=== PATIENT | male | born 1985 | race Caucasian/White ===

== ENCOUNTER 2024-05-08 14:16 | Outpatient (CLI) | payer BC, SELFPAY ==
--- NOTE | ~2024-05-08 | XR_ITS ---
HISTORY: M25.562 - Pain in left knee COMPARISON: None TECHNIQUE: 4 views of the left knee were performed FINDINGS: No acute or subacute fracture, erosion, lytic or sclerotic lesion. Medial tibiofemoral joint space narrowing is identified. No suprapatellar joint effusion is identified. The infrapatellar joint space is clear. IMPRESSION: Trace degenerative disease, without acute fracture or dislocation Reviewed, dictated and finalized at location A.
== END 2024-05-08 14:17 | disposition home or self-care (01) ==
LOC: GOSHIMG 14:18
PROVIDERS: PCP Family Medicine; Visit Provider Family Medicine
DX: M25.562 Pain in left knee (principal)
CPT/HCPCS: 73564

== ENCOUNTER 2024-06-12 09:47 | Outpatient (CLI) | payer BC, SELFPAY ==
--- NOTE | ~2024-06-12 | MR_ITS ---
MRI of the left knee Clinical history: Pain Technique: Coronal proton density and proton density-weighted images, sagittal proton-density and T2 fat-sat images, and axial proton-density fat-saturated images were acquired. Findings: Anterior and posterior cruciate ligaments are intact. Medial collateral ligament and the la teral collateral ligament complex are intact. Popliteus tendon intact. There is mildly complex flap tearing of the posterior horn of the medial meniscus extending to the nitish dy segment. No lateral meniscal tear seen. Articular cartilage is well preserved throughout the knee. Bone marrow signals are unremarkable. Extensor mechanism is intact. No joint effusion or Álvarez's cyst. Impression: Mildly complex flap tear of the posterior horn of the medial meniscus extending to the body segment. Reviewed, dictated and finalized at location M. Impression: Mildly complex flap tear of the posterior horn of the medial meniscus extending to the body segment.
--- OUTSIDE RECORDS SUMMARY | 2024-06-12 10:59 | XMS_ITS | Clinical Summary ---
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 7.5 mL 9 Active Active Problems No known active problems Immunizations Immunization Administration Dates Next Due INFLUENZA VACCINE QUADRIVALE NT 6 MOS UP PF IM 12/08/2019 Influenza Seasonal Unspecifi ed Formulation IM 12/13/2018,12/07/2017,12/07/2017 Family History Medical History Relation Name Comments Hypertension Mother Relation Name Status Comments Mother Social History Tobacco Use Types Packs/Day Years Used Date Smoking Tobacco: Never Smokeless Tobacco: Never Alcohol Use Standard Drinks/Week Comments Yes 1 (1 standard drink = 0.6 oz pur e alcohol) weekly: 2 drinks Sex and Gender Information Value Date Recorded Sex Assigned at Not on file Legal Sex Male 5:04 PM CDT Gender Identity Not on file Sexual Orientation Not on file Occupation Industry Job Start Date Job End Date Not on file Not on file Not on file Not on file Last Filed Vital Signs Vital Sign Reading Time Taken Comments Blood Pressure 102/76 12/07/2018 1:26 PM CDT Pulse 76 12/07/2018 1:26 PM CDT Temperature 36.8 C (98.3 F) 12/07/2018 1:26 PM CDT Respiratory Rate - - Oxygen Saturation 97% 12/07/2018 1:26 PM CDT Inhaled Oxygen Concentration - - Weight 71.2 kg (157 lb) 12/07/2018 1:26 PM CDT Height 168 cm (5' 6.14 ) 12/07/2018 1:26 PM CDT Body Mass Index 25.23 12/07/2018 1:26 PM CDT Plan of Treatment Health Maintenance Due Date Last Done Comments DTAP/TDAP/TD VACCINES (1 - Tdap) 2006 HEPATITIS B VACCINES (1 of 3 - 19+ 3-dose series) 2006 INFLUENZA VACCINE (#1) 2023 0, 12/13/2018, 12/07/2017, Additional history exists HPV VACCINES Aged Out No longer eligi ble based on patient's age to complete this topic
== END 2024-06-12 09:48 | disposition home or self-care (01) ==
PROVIDERS: PCP Family Medicine; Visit Provider Family Medicine
DX: S83.232A Complex tear of medial meniscus, current injury, left knee, initial encounter (principal); X58.XXXA Exposure to other specified factors, initial encounter
CPT/HCPCS: 73721

== ENCOUNTER 2024-06-14 11:00 | Outpatient (RCR) | payer BC, SELFPAY ==
--- NOTE | 2024-05-09 14:52 | OPREHPOC ---
Outpatient Therapy Plan of Care This is a Multidisciplinary Plan of Care that may contain components documented by all disciplines (PT, OT, and ST.) PT Problem 1 PT Problem #1 Knowledge Deficit PT Goal 1 Goal / Goal Update 1. Pt to be IND with issued HEP Target Visit 6 PT Problem 2 PT Problem #2 Pain PT Goal 1 Goal / Goal Update 1. Pt to report knee pain no greater than 3/10 in the last week. Target Visit 6 PT Problem 3 PT Problem #3 Impaired Range of Motion PT Goal 1 Goal / Goal Update 1. Pt to improve active knee ROM to 0-130 deg Target Visit 6 PT Problem 4 PT Problem #4 Impaired Functional Mobility PT Goal 1 Goal / Goal Update 1. Pt to ambulate stairs with a reciprocal pattern without an increase in pain Target Visit 6
--- NOTE | 2024-05-09 14:52 | PTOPEVAL1 ---
Assessment and note entered by Ron Garcia, PT, DPT Evaluation Information Assessment Status Evaluation Diagnosis L knee pain ICD-10 Condition Codes (PT) Pain in left knee M25.562 Onset 02/2024 Subjective Information Pt states he was lunging down to pick something up , felt a massive pop, had instant pain and swelling. Now almost 2 months ago, the swelling has decreased but his pain level is still the same . States in the mornings his pain is manageable but as the day progresses to does his pain. He has 3 small children, likes to bike and marathon running as well. Reports 0/10 pain with rest, 8-9/10 with activity. 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 Reported Pain Level Pain Score 0: Self Report Assessment PT Clinical Summary Pt presents to therapy today for his initial evaluation with a diagnosis of L knee pain, he demonstrates s/s consistent with a L medial meniscus injury. He reports point tenderness to the L medial knee joint and has pain with motion in an open packed position. His pain has remained unchanged in the last 3 months since his injury. His prior activity level and ADLs and limited by pain. It is recommended that pt get an ortho consult to discuss potential surgical options. Skilled therapy services are indicated to improve lateral hip strength to manage knee stability, to manage pain, and to progress to a return to PLOF. Plan of Care Interventions Electrical Stimulation,Gait Training,Hot Pack/Cold Pack,Intermittent Compression Pump,Manual Therapy ,Neuro Re-education,Patient/Caregiver Education, Therapeutic Activities,Therapeutic Exercise PT Services Indicated Yes Treatment Frequency and 1x/wk for 6 visits Duration These treatments will address the objective and functional deficits as defined above. The patient will be advanced safely and appropriately in order for the patient to progress towards his/her prior level of function. Additional exercises will be introduced and as well as a comprehensive home exercise program upon discharge, if needed, ?to ensure carryover of functional gains achieved in the clinic. This treatment plan has been reviewed and agreement upon by the patient.
--- NOTE | 2024-06-14 11:46 | OPREHPOC ---
Outpatient Therapy Plan of Care This is a Multidisciplinary Plan of Care that may contain components documented by all disciplines (PT, OT, and ST.) PT Problem 1 PT Problem #1 Knowledge Deficit PT Goal 1 Goal / Goal Update 1. Pt to be IND with issued HEP Target Visit 6 Progress Met PT Problem 2 PT Problem #2 Pain PT Goal 1 Goal / Goal Update 1. Pt to report knee pain no greater than 3/10 in the last week. 06/14/24: 1. not met Target Visit 6 PT Problem 3 PT Problem #3 Impaired Range of Motion PT Goal 1 Goal / Goal Update 1. Pt to improve active knee ROM to 0-130 deg 06/14/24: 1. progressing Target Visit 6 PT Problem 4 PT Problem #4 Impaired Functional Mobility PT Goal 1 Goal / Goal Update 1. Pt to ambulate stairs with a reciprocal pattern without an increase in pain 06/14/24: 1. not met Target Visit 6
--- NOTE | 2024-06-14 11:46 | PTOPDC ---
Assessment and note entered by Ron Garcia, PT, DPT Evaluation Information Assessment Status Discharge Diagnosis L knee pain ICD-10 Condition Codes (PT) Pain in left knee M25.562 Onset 02/2024 Subjective Information Pt states he has not noticed any real changes since starting therapy. Is still getting sharp pain with activity. Had MRI done, showed complex tear of posterior horn of medial meniscus. Reported Pain Level Pain Score 4: Self Report Assessment PT Clinical Summary Pt presents to therapy today for his progress report following 6 visits of skilled therapy to treat his L knee pain. His pain has remained unchanged since starting therapy. He has made little to no progress towards his therapy goals. Will be discharged at this time, plans to follow up with ortho regarding surgical options.
== END 2024-06-14 13:18 | disposition home or self-care (01) ==
LOC: ANHGOSHPT 11:00
PROVIDERS: PCP Family Medicine; Visit Provider Family Medicine
DX: M25.562 Pain in left knee (principal)
CPT/HCPCS: 97016; 97110; 97161; 97530

== ENCOUNTER 2024-07-10 11:16 | Outpatient (CLI) | payer BC, SELFPAY ==
--- NOTE | 2024-07-10 11:37 | ECG_ITS ---
Test Date: 2024-07-10 11:42:30 Measurements Intervals Keeler Rate: 71 P: 23 CA: 178 QRS: -9 QRSD: 112 T: 11 QT: 387 QTc: 422 Interpretive Statements SINUS RHYTHM No previous ECG available for comparison Electronically Signed On 07-10-2024 12:28:21 CDT by Yunior Hugo M.D.
--- OUTSIDE RECORDS SUMMARY | 2024-07-10 11:58 | XMS_ITS | Clinical Summary ---
Author Organization [facility] Address [address] [place] [address] Phone Care Team Providers Care [employer] Development Manager Name Role Phone Unavailable Primary Care Provider [...]
== END 2024-07-10 11:17 | disposition home or self-care (01) ==
LOC: ANHSURGERY 11:22
PROVIDERS: PCP Family Medicine; Visit Provider Orthopaedic Surgery
DX: I10 Essential (primary) hypertension (principal); Z01.818 Encounter for other preprocedural examination
CPT/HCPCS: 93005

== ENCOUNTER 2024-07-12 00:42 | Day surgery (SDC) | payer BC, SELFPAY ==
--- NOTE | 2024-07-05 14:01 | PC.NURSE ---
Report to the Outpatient Waiting Room, entrance under the green pavilion located off [facility], at time _0900_ on date _[id number]_. Planned Procedure Time: _1100_. Time changes happen often and if your time is changed the preop area will call you the afternoon before. - You and your visitor will be asked to self-screen and do not enter if you have any COVID symptoms. Please call surgeon if you need to reschedule. - A mask is optional within the hospital at this time. Patients may have clear liquids (water, carbonated beverages, clear teas, apple juice) until 3 hours prior to surgery with a maximum of 20 ounces. - No food from midnight until time of surgery and no smoking, or chewing tobacco (or any form of nicotine). No chewing gum, candy or mints. Take only the following medications with a SIP of water on the morning of surgery: ___None____ DO NOT STOP ANY OF YOUR OTHER PRESCRIPTION MEDICATIONS PRIOR TO SURGERY EXCEPT THE FOLLOWING Hold all vitamins and supplements for 3 days per anesthesiologist. Medications to discontinue per physician Date to take last dose Please no make-up, nail romansh, hairspray, perfume, deodorant, or body powder the day of surgery. No jewelry (including any body piercings) or valuables the day of surgery, leave them at home. Please take a shower or bath the night before, or the morning of, surgery with an antibacterial soap. Wear comfortable, loose fitting clothing. - Jewelry must be removed prior to entering the operating room. Rings and piercings that are not removed may be cut off. - The hospital will not accept responsibility for valuables. - Please leave all valuables, including medications, at home the day of surgery. If you are going home after surgery, a licensed bulk driver must drive you home. - NO public transportation without another adult if you receive anesthesia. - We recommend that an adult stay with you for 24 hours following discharge. - We also recommend that you do not drive, make important decision, drink alcoholic beverages, or take any drugs that were not prescribed by your health care provider for at least 24 hours after your discharge time. Follow any additional instructions given to you from your surgeon. Telephone instructions given to __Vineet___and asked if any additional questions and then verbalized understanding. Patient advised to call surgeon office or pre surgery nurse liaison [phone] if any additional questions.
[2024-07-05 14:10] VITALS: BMI 25.4
[2024-07-12] VITALS (8 sets, daily range): BP systolic 111–141; BP diastolic 76–102; PULSE 64–87; RESP 10–20; TEMP 36.1–36.4; O2SAT 97–100; BMI 25.7
--- OUTSIDE RECORDS SUMMARY | 2024-07-12 00:44 | XMS_ITS | Clinical Summary ---
Author Organization [facility] Address [address] [place] [address] Phone Care Team Providers Care [employer] Furnace Keeper Name Role Phone Unavailable Primary Care Provider [...]
[2024-07-12] MEDS: ACETAMINOPHEN 500 MG TABLET 1000 MG PO (09:15)
[2024-07-12] MEDS: KETOROLAC 15 MG/ML VIAL (*BKC) IV PUSH (09:30)
[2024-07-12] MEDS: LACTATED RINGERS 1,000 ML 30 ML IV CONT (09:30)
--- NOTE | 2024-07-12 11:46 | WPDHPUPDATE1 ---
History and Physical Update Update Date/Time: 07/12/24 11:46 History and Physical has been reviewed, including an updated exam of the patient. There are NO changes in the patient's condition. Risks, benefits, and alternatives have been discussed and questions answered. Patient agrees to proceed with procedure.
--- NOTE | 2024-07-12 14:00 | WPDANESEPPF ---
Anes - Initial Pre Proc Eval Procedure: Operation Date: 07/12/24 11:00 Proposed Procedures p Left Knee Arthroscopy, Partial Medial Meniscectomy - Oc Long MD Date/Time: 07/12/24 14:00 Surgeon: Oc Long MD Pre Op Diagnosis: left knee medial meniscus tear Patient Data Age: 39 Gender: M Height: 1.7 m Weight: 74.4 kg Last Vital Signs Temp 97.6 F 07/12/24 10:43 Pulse 83 07/12/24 10:43 BP 141/102 H 07/12/24 10:43 Pulse Ox 98 07/12/24 10:43 O2 Del Method Room Air 07/12/24 10:43 Allergies Allergy/AdvReac Type Severity Reaction Status Date / Time No Known Allergies Allergy Verified 07/12/24 10:42 Home Medications Medication Instructions Recorded Confirmed Type lisinopril 20 mg tablet 20 mg PO .daily morning #90 tabs 04/10/24 07/12/24 Rx lisinopril 10 mg tablet 10 mg PO DAILY 07/05/24 07/12/24 History hydrocodone 5 mg-acetaminophen 325 1 - 2 tablet PO Q4-6H PRN pain 7 07/12/24 Rx mg tablet days #30 tabs Patient hx anesthesia problems: none Family hx anesthesia problems: none Results Review: All pre-operative results and documents have been reviewed as part of the pre-operative evaluation. [facility] Past Medical History Medical History BMI between 19-24,adult Right leg pain Screening for lipid disorders Establishing care with new doctor, encounter for Family History Family History Father Hypertension Mother Hypertension Hyperlipidemia Diabetes mellitus Heart disease Sibling Diabetes mellitus Depression Anxiety Grandparent Cancer Heart disease Hypertension Cerebrovascular accident Other Breast cancer Colon polyp Lung cancer Malignant neoplasm of prostate Social History Social History (Updated 07/05/24 @ 09:54 by Ann Cochran CMA) Social History: Caffeine-2 servings per day Smoking status: Never smoker Second hand tobacco smoke exposure: No Alcohol intake: current Alcohol use details: rarely Substance use: never Substance use type: does not use Do You Feel Safe in your Home?: Yes Lack of Transportation: No Lack of Food: Never True Current Housing: I Have Housing Concerned About Future Housing: No Difficulty Paying Gas/Electric Bills: No Difficulty Paying for Meds: No Currently Unemployed: No Education: Master's Degree or Higher Difficulty w/ Childcare or Family Care: No Living arrangements: with family Occupation/Education: occupation 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 Informed Consent: The patient's anesthetic plan and its attendant risks and benefits were discussed with the patient/family/POA. Questions were solicited and answers provided to the satisfaction of the patient/family/POA.
[2024-07-12] MEDS: ceFAZolin 2 GM/D5W 50 ML 2 GM/50 ML BAG IVPB (14:05)
[2024-07-12] MEDS: BUPIVACAINE/EPINEPHRINE 0.5% 50 ML VIAL 20 ML INFILTRATE (14:35)
--- NOTE | 2024-07-12 16:20 | P.OP_ITS ---
Procedure Note - Detailed Date of Procedure 07/12/24 Pre-op Diagnosis Left knee medial meniscus tear Post-op Diagnosis Same Procedure Performed Arthroscopic partial medial meniscectomy, left knee. Surgeon Oc Long MD Anesthesia General Findings Large, unstable, posteromedial flap tear Medial femur chondromalacia grade 0, medial tibia grade 0. Lateral femur chondromalacia grade 0, lateral tibia grade 0. Patellar grade 0, trochlea grade 0. Description of Procedure The patient was identified and the surgical site confirmed and signed in the preoperative holding area. Antibiotics were started per protocol, and the patient was brought to the operative room and transferred to the OR table. A general anesthetic was administered. Supine position with the operative lower extremity position in the leg davis after placement of a well padded tourniquet . The leg support was lowered and the contralateral limb was supported with a soft bolster. The knee was prepped and draped in the usual sterile fashion. A time-out was performed. The portal sites were marked and infiltrated with 0.5% Marcaine 20 mL. The limb was exsanguinated and the tourniquet inflated to 300 mL Hg. Standard inferolateral and inferomedial portals were established. Inflow was obtained with the saline pump. The camera was introduced. Diagnostic inspection of the joint was accomplished. The meniscus was debrided with the arthroscopic shaver and punches until stable. The arthroscopic instruments were removed. The tourniquet released and wounds closed with subcutaneous 4-0 Monocryl absorbable suture. Steri strips and a sterile dressing were applied. A light elastic wrap was placed. The patient was extubated and brought to the recovery room in stable condition. Estimated Blood Loss 5 Drains No Complications No immediate complications Condition Stable Disposition PACU [facility] Billing Surgery - Charge Forward: Surgery Billing
== END 2024-07-12 16:36 | disposition home or self-care (01) ==
PROVIDERS: PCP Family Medicine; Visit Provider Orthopaedic Surgery
PROC: (CPT 29870; principal; 2024-07-12 11:00)
DX: S83.242A Other tear of medial meniscus, current injury, left knee, initial encounter (principal); X50.0XXA Overexertion from strenuous movement or load, initial encounter
CPT/HCPCS: 29881; A9270; J0690; J1100; J1885; J2003; J2250; J2405; J2704; J3010; J7120

== ENCOUNTER 2024-08-22 11:00 | Outpatient (RCR) | payer BC, SELFPAY ==
--- NOTE | 2024-07-20 12:23 | PTOPEVAL1 ---
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 Pt is very active at [employer], running marathons and have 3 kids 6 yo. and under. After surgery, pt reports has been active with exercises, applied consisted icing every 20 min the first few days, when walking on stairs, feel like the L knee is unstable when he is walking up/ down stairs so he still uses the handrail for safety. Knee does not hurt, but would occasionally feel sore in the evenings although its not too bad. walked on uneven surfaces in the yard yesterday and it felt fine. Takes Hydrocodone, may have taken it every other evening. Reported Pain Level Pain Score 1: Self Report Assessment PT Clinical Summary Pt presents to therapy s/p L knee arthroscopic partial medial menisectomy 07/12/[address] Long. Demos ROM limitations, weakness, reduced endurance and knee stability, discomfort and slight swelling post surgery. He will benefit from skilled PT to manage pain and discomfort, improve flexibility, strength and stability of the L knee, improve endurance and gait mechanics to return to active and sporty PLOF. Plan of Care Interventions Check Out for Orthotic/Prosthetic,Electrical Stimulation,Gait Training,Hot Pack/Cold Pack, Manual Therapy,Neuro Re-education,Patient/ Caregiver Education,Therapeutic Activities, Therapeutic Exercise,Other Other Interventions Taping PT Services Indicated Yes Treatment Frequency and 2x/wk x 10 visits Duration These treatments will address the objective and functional deficits as defined above. The patient will be advanced safely and appropriately in order for the patient to progress towards his/her prior level of function. Additional exercises will be introduced and as well as a comprehensive home exercise program upon discharge, if needed, ?to ensure carryover of functional gains achieved in the clinic. This treatment plan has been reviewed and agreement upon by the patient.
--- NOTE | 2024-07-20 12:23 | OPREHPOC ---
Outpatient Therapy Plan of Care This is a Multidisciplinary Plan of Care that may contain components documented by all disciplines (PT, OT, and ST.) PT Problem 1 PT Problem #1 Knowledge Deficit PT Goal 1 Goal / Goal Update Pt will perform HEPs to improve strength and stability of B knees and ways to reduce risk for re-injuries. Target Visit 8 PT Problem 2 PT Problem #2 Impaired Range of Motion PT Goal 1 Goal / Goal Update Pt will demo L knee active ROM to 0-130 PT Problem 3 PT Problem #3 Impaired Strength PT Goal 1 Goal / Goal Update Pt will demo 5/5 strength to B knees without any discomfort. Target Visit 10 PT Problem 4 PT Problem #4 Impaired Endurance
--- NOTE | 2024-08-22 11:57 | OPREHPOC ---
Outpatient Therapy Plan of Care This is a Multidisciplinary Plan of Care that may contain components documented by all disciplines (PT, OT, and ST.) PT Problem 1 PT Problem #1 Knowledge Deficit PT Goal 1 Goal / Goal Update Pt will perform HEPs to improve strength and stability of B knees and ways to reduce risk for re-injuries. Target Visit 8 Progress Met PT Problem 2 PT Problem #2 Impaired Range of Motion PT Goal 1 Goal / Goal Update Pt will demo L knee active ROM to 0-130 Progress Met PT Problem 3 PT Problem #3 Impaired Strength PT Goal 1 Goal / Goal Update Pt will demo 5/5 strength to B knees without any discomfort. Target Visit 10 Progress Met PT Problem 4 PT Problem #4 Impaired Endurance PT Goal 1 Progress Met
--- NOTE | 2024-08-22 11:57 | PTOPDC ---
Assessment and note entered by Russell Emery, PT Evaluation Information Assessment Status Discharge Diagnosis Z48.89 ICD-10 Condition Codes (PT) Pain in left knee M25.562,Difficulty Walking R26.2 ,Abnormalities of gait and mobility R26.9,Weakness R53.1 Subjective Information Reports overall he is doing well. Returned to majority of exercise activity including running. Running still feels a bit awkward but is getting better with time. Feels comfortable with HEP and comfortable with discharge at this time. Reported Pain Level Pain Score 0: Self Report Assessment PT Clinical Summary Patient met all goals for therapy and is suitable for discharge to [facility] at this time. No inflammation or ROM loss noted at this time. No concerns for discharge. Plan of Care PT Services Indicated Yes
== END 2024-08-22 14:30 | disposition home or self-care (01) ==
LOC: ANHGOSHPT 11:00
PROVIDERS: PCP Family Medicine; Visit Provider Orthopaedic Surgery
DX: Z48.89 Encounter for other specified surgical aftercare (principal); M25.562 Pain in left knee; R26.2 Difficulty in walking, not elsewhere classified; R53.1 Weakness
CPT/HCPCS: 97110; 97112; 97161; 97530